=== PATIENT | male | born 1940 | race Caucasian/White ===

== ENCOUNTER 2020-01-18 09:35 | Emergency (ER) | payer MEDICARE ==
[~2020-01-18] VITALS: Ht 170.2 cm; Wt 68.2 kg
[2020-01-18] MEDS ORDERED: HYDR-4383 PO (11:12)
[2020-01-18] MEDS ORDERED: cyclobenzaprine 10mg tablet PO ONE (11:35)
[2020-01-18 11:59] VITALS: BP 159/76
== END 2020-01-18 11:52 | disposition home or self-care (01) ==
LOC: ER 09:36
DX: S22.088A Other fracture of T11-T12 vertebra, initial encounter for closed fracture (principal); S39.012A Strain of muscle, fascia and tendon of lower back, initial encounter; E11.9 Type 2 diabetes mellitus without complications; Z98.890 Other specified postprocedural states; W19.XXXA Unspecified fall, initial encounter; Y93.89 Activity, other specified; Y92.89 Other specified places as the place of occurrence of the external cause; Y99.8 Other external cause status
CPT/HCPCS: 72131; 99284

== ENCOUNTER 2024-03-03 13:31 | Inpatient (IN) | payer MEDICARE, MEDICAID ==
[~2024-03-03] VITALS: Ht 172.7 cm; Wt 75.0 kg
[~2024-03-03 13:31] MED LIST: HYDR-4383 PO
[2024-03-03 14:05] LABS: BASOPHILS # (AUTO) 0.1 X10'3 (0-0.2); BASOPHILS % (AUTO) 0.7 % (0-1); EOSINOPHILS # (AUTO) 0.3 X10'3 (0-0.9); EOSINOPHILS % (AUTO) 2.5 % (0-6); HEMATOCRIT 38.8 % (35.0-45.0); LYMPHOCYTES # (AUTO) 2.9 X10'3 (1.1-4.8); LYMPHOCYTES % (AUTO) 26.8 % (21-51); MEAN CORPUSCULAR HEMOGLOBIN 29.4 PG (27.0-31.0); MEAN CORPUSCULAR HGB CONC 33.6 g/dL (33.0-36.5); MEAN CORPUSCULAR VOLUME 87.4 FL (78-98); MONOCYTES # (AUTO) 0.9 X10'3 (0-0.9); MONOCYTES % (AUTO) 8.5 % (2-12); NEUTROPHILS # (AUTO) 6.7 X10'3 (1.8-7.7); NEUTROPHILS % (AUTO) 61.5 % (42-75); PLATELET COUNT 279 X10'3 (140-440); RED BLOOD COUNT 4.45 X10'6 (4.20-5.60); RED CELL DISTRIBUTION WIDTH 12.9 % (11.5-14.5); WHITE BLOOD COUNT 10.8 X10'3 (4.5-11.0)
[2024-03-03 14:24] LABS: ALBUMIN 3.2 G/DL (3.4-5.0); ANION GAP 10 (8-16); BLOOD UREA NITROGEN 18 MG/DL (7-18); CALCIUM 9.5 MG/DL (8.5-10.1); CHLORIDE 96 MMOL/L (99-107); CREATININE 1.29 MG/DL (0.40-0.90); GLUCOSE 317 MG/DL (70-104); POTASSIUM 3.9 MMOL/L (3.5-5.1); SODIUM 132 MMOL/L (135-145); TOTAL CARBON DIOXIDE 26.3 MMOL/L (24-32); eCRCL 34 ML/MIN; eGFR 40 ML/MIN
[2024-03-03 14:27] LABS: APTT 25 SECONDS (22-32); INR 0.9 INR; PROTHROMBIN TIME 9.9 SECONDS (9.0-12.0)
[2024-03-03 15:51] LABS: BILIRUBIN,URINE NEGATIVE (Neg); CLARITY,URINE CLEAR (Clear); COLOR,URINE YELLOW (Yellow); GLUCOSE, URINE 500 mg/dl (Neg); KETONES,URINE NEGATIVE (Neg); LEUKOCYTE ESTERASE ,URINE NEGATIVE (Neg); NITRITES, URINE NEGATIVE (Neg); OCCULT BLOOD,URINE TRACE-INTACT (Neg); PH,URINE 6.5 (4.8-8.0); PROTEIN,URINE 100 mg/dl (Neg); UROBILINOGEN,URINE 0.2 E.U/dL (0.2-1.0)
[2024-03-03 15:56] LABS: UA COLLECTION TYPE CLN CATCH MIDSTREAM
[2024-03-03 15:57] LABS: BACTERIA,URINE 1+ /HPF (Neg); HYALINE CASTS 0-3 /LPF (NEGATIVE); MUCUS STRANDS NONE SEEN /LPF (Neg); RBC,URINE 0-2 /HPF (0-2); SQUAMOUS EPITHELIAL CELL,UR MODERATE /LPF (FEW); WBC,URINE 0-4 /HPF (0-4)
[2024-03-03] MEDS: aspirin 81mg tab.chew PO ONE (16:56)
[2024-03-03] MEDS ORDERED: potassium Cl 40MEQ/1/2NS 520ml 520 ML IV PRN (18:10)
[2024-03-03] MEDS ORDERED: magnesium hydroxide 30ml (MOM) UD suspension PO PRN (18:10)
[2024-03-03] MEDS ORDERED: potassium Cl 20 mEq SR tablet PO PRN ×2 (18:10)
[2024-03-03] MEDS ORDERED: magnesium Cl slow-release 64mg tablet PO PRN (18:10)
[2024-03-03] MEDS ORDERED: magnesium sulf-water 4G/100mL 100 ML IV PRN (18:10)
[2024-03-03] MEDS ORDERED: acetaminophen 325mg tablet PO PRN (18:10)
[2024-03-03] MEDS ORDERED: ondansetron/PF 4mg/2ml inj IV PRN (18:10)
[2024-03-03] MEDS ORDERED: mag hydrox/Alum hydrox/simeth 30ml oral suspension PO PRN (18:10)
[2024-03-03] MEDS ORDERED: magnesium sulf-water 2g/50mL 50 ML IV PRN (18:10)
[2024-03-03] MEDS: PERFLUTREN PROTEIN-A MICROSPHR (Optison) 0.22 MG/ML 3ML VIAL IV ONE (18:56)
[2024-03-03 19:15] LABS: HEMOGLOBIN A1C 8.8 % (4.5-6.2)
[2024-03-03] MEDS: K and/or MAG REPLACEMENT MC SCH (20:00)
[2024-03-03] MEDS: docusate sod 100mg capsule PO SCH (20:00)
[2024-03-03 21:00] VITALS: BP 210/117; PULSE 63; RESP 18; TEMP 98.2; O2SAT 96
[2024-03-03 21:30] VITALS: BP 205/93; PULSE 84
[2024-03-03] MEDS ORDERED: dextrose 50%-water 50ml dispensing syringe IV PRN ×2 (21:50)
[2024-03-03] MEDS ORDERED: DEXTROSE 15 GM of carb/4 tabs (each vial/BOTTLE has 4 tablets) PO PRN ×2 (21:50)
[2024-03-03] MEDS ORDERED: glucagon, human recombinant 1mg kit SUBCUT PRN (21:50)
[2024-03-03 22:00] VITALS: BP 205/93; PULSE 83; RESP 13; TEMP 97.9; O2SAT 95
[2024-03-03] MEDS: heparin, porcine 5000 units/ml vial SQ SCH (22:47)
[2024-03-03] MEDS: insulin glargine (Lantus) pen - multi-dose SQ SCH (22:48)
[2024-03-03] MEDS: INSULIN LISPRO 100 UNIT/ML INSULN.PEN MULTI-DOSE SQ SCH (22:49)
[2024-03-04] VITALS (11 sets, daily range): BP systolic 115–170; BP diastolic 60–87; PULSE 68–83; RESP 11–17; TEMP 97.7–99; O2SAT 91–99
[2024-03-04] MEDS: normal saline 1000ml 1,000 ML IVB ONE (02:26)
[2024-03-04 06:12] LABS: BASOPHILS # (AUTO) 0.1 X10'3 (0-0.2); BASOPHILS % (AUTO) 0.9 % (0-1); EOSINOPHILS # (AUTO) 0.2 X10'3 (0-0.9); EOSINOPHILS % (AUTO) 2.6 % (0-6); HEMATOCRIT 35.9 % (35.0-45.0); HEMOGLOBIN 12.1 g/dl (12.0-16.0); LYMPHOCYTES # (AUTO) 2.4 X10'3 (1.1-4.8); LYMPHOCYTES % (AUTO) 25.9 % (21-51); MEAN CORPUSCULAR HEMOGLOBIN 29.4 PG (27.0-31.0); MEAN CORPUSCULAR HGB CONC 33.7 g/dL (33.0-36.5); MEAN CORPUSCULAR VOLUME 87.1 FL (78-98); MEAN PLATELET VOLUME 9.2 FL (7.4-10.4); MONOCYTES # (AUTO) 0.9 X10'3 (0-0.9); MONOCYTES % (AUTO) 9.3 % (2-12); NEUTROPHILS # (AUTO) 5.7 X10'3 (1.8-7.7); NEUTROPHILS % (AUTO) 61.3 % (42-75); PLATELET COUNT 267 X10'3 (140-440); RED BLOOD COUNT 4.12 X10'6 (4.20-5.60); RED CELL DISTRIBUTION WIDTH 12.8 % (11.5-14.5); WHITE BLOOD COUNT 9.3 X10'3 (4.5-11.0)
[2024-03-04 06:28] LABS: ALANINE AMINOTRANSFERASE 16 U/L (12-78); ALBUMIN 2.6 G/DL (3.4-5.0); ALBUMIN/GLOBULIN RATIO 0.6 (1.1-1.5); ALKALINE PHOSPHATASE 80 IU/L (46-116); ANION GAP 9 (8-16); ASPARTATE AMINO TRANSFERASE 17 U/L (10-37); BILIRUBIN,TOTAL 0.5 MG/DL (0.1-1.0); BLOOD UREA NITROGEN 13 MG/DL (7-18); BUN/CREATININE RATIO 12.9 (10.0-20.0); CALCIUM 8.4 MG/DL (8.5-10.1); CHLORIDE 105 MMOL/L (99-107); CHOL/HDL RATIO 8.2 (0.00-4.99); CHOLESTEROL 286 MG/DL (0-200); CREATININE 1.01 MG/DL (0.40-0.90); GLUCOSE 181 MG/DL (70-104); HDL CHOLESTEROL 35 MG/DL (35-60); POTASSIUM 3.9 MMOL/L (3.5-5.1); SODIUM 139 MMOL/L (135-145); TOTAL CARBON DIOXIDE 24.8 MMOL/L (24-32); TOTAL PROTEIN 7.2 G/DL (6.4-8.2); TRIGLYCERIDES 184 MG/DL (20-135); eCRCL 43 ML/MIN; eGFR 52 ML/MIN
[2024-03-04 06:34] LABS: HEMOGLOBIN A1C 8.6 % (4.5-6.2)
[2024-03-04 06:38] LABS: LDL CHOLESTEROL 204 MG/DL (50-100)
[2024-03-04] MEDS: atorvastatin 20mg tablet PO SCH (07:55)
[2024-03-04] MEDS: aspirin 325mg tablet, delayed-release (Ecotrin) PO SCH (07:55)
[2024-03-04] MEDS ORDERED: atorvastatin 20mg tablet PO SCH (08:00)
[2024-03-04] MEDS: clopidogrel 75mg tablet PO ONE (12:49)
[2024-03-04] MEDS: atorvastatin 20mg tablet PO ONE (12:49)
[2024-03-04] MEDS ORDERED: iohexol 350MG/ML 100ml bottle IV ONE (15:25)
[2024-03-04] MEDS: normal saline 1000ml 1,000 ML IV SCH (15:25)
[2024-03-05 02:00] VITALS: BP 137/65; PULSE 64; RESP 16; TEMP 97.8; O2SAT 91
[2024-03-05] MEDS: normal saline 250ml IV soln 250 ML IV ONE (03:15)
[2024-03-05 04:00] VITALS: BP 145/67; PULSE 66; RESP 16; TEMP 97.8; O2SAT 93
[2024-03-05 06:00] VITALS: BP 154/75; PULSE 65; RESP 20; TEMP 98; O2SAT 97
[2024-03-05 06:32] LABS: BASOPHILS # (AUTO) 0.1 X10'3 (0-0.2); EOSINOPHILS # (AUTO) 0.3 X10'3 (0-0.9); EOSINOPHILS % (AUTO) 3.7 % (0-6); HEMATOCRIT 34.5 % (35.0-45.0); HEMOGLOBIN 11.7 g/dl (12.0-16.0); LYMPHOCYTES # (AUTO) 2.2 X10'3 (1.1-4.8); LYMPHOCYTES % (AUTO) 23.7 % (21-51); MEAN CORPUSCULAR HEMOGLOBIN 29.3 PG (27.0-31.0); MEAN CORPUSCULAR HGB CONC 33.9 g/dL (33.0-36.5); MEAN CORPUSCULAR VOLUME 86.4 FL (78-98); MEAN PLATELET VOLUME 9.4 FL (7.4-10.4); MONOCYTES # (AUTO) 0.8 X10'3 (0-0.9); NEUTROPHILS # (AUTO) 5.8 X10'3 (1.8-7.7); NEUTROPHILS % (AUTO) 62.6 % (42-75); PLATELET COUNT 258 X10'3 (140-440); RED CELL DISTRIBUTION WIDTH 12.9 % (11.5-14.5); WHITE BLOOD COUNT 9.2 X10'3 (4.5-11.0)
[2024-03-05 06:50] LABS: ALANINE AMINOTRANSFERASE 19 U/L (12-78); ALBUMIN 2.7 G/DL (3.4-5.0); ALBUMIN/GLOBULIN RATIO 0.6 (1.1-1.5); ALKALINE PHOSPHATASE 76 IU/L (46-116); ANION GAP 9 (8-16); ASPARTATE AMINO TRANSFERASE 13 U/L (10-37); BILIRUBIN,TOTAL 0.5 MG/DL (0.1-1.0); BLOOD UREA NITROGEN 14 MG/DL (7-18); BUN/CREATININE RATIO 13.1 (10.0-20.0); CALCIUM 9.1 MG/DL (8.5-10.1); CHLORIDE 104 MMOL/L (99-107); CREATININE 1.07 MG/DL (0.40-0.90); GLUCOSE 189 MG/DL (70-104); MAGNESIUM 1.9 MG/DL (1.5-2.4); POTASSIUM 3.6 MMOL/L (3.5-5.1); SODIUM 137 MMOL/L (135-145); TOTAL CARBON DIOXIDE 24.1 MMOL/L (24-32); TOTAL PROTEIN 6.9 G/DL (6.4-8.2); eCRCL 41 ML/MIN; eGFR 49 ML/MIN
[2024-03-05 08:00] VITALS: BP 154/75; PULSE 65; RESP 20; TEMP 98; O2SAT 97
[2024-03-05] MEDS: cholecalciferol (vitamin D3) 1,000 unit (25mcg) tablet PO SCH (08:09)
[2024-03-05] MEDS: clopidogrel 75mg tablet PO SCH (08:09)
[2024-03-05] MEDS: OMEGA-3/DHA/EPA/FISH OIL 1 EACH CAPSULE.DR PO SCH (08:09)
[2024-03-05] MEDS: multivitamins, therapeutics tablet PO SCH (08:10)
[2024-03-05] MEDS: magnesium citrate 296ml oral solution PO ONE (08:10)
[2024-03-05] MEDS ORDERED: ASPI-1071 PO (10:28)
[2024-03-05] MEDS ORDERED: CLOP75TA34 PO (10:28)
[2024-03-05] MEDS ORDERED: ATOR20TA66 PO (10:28)
[2024-03-05] MEDS ORDERED: DOCU100C40 PO (10:28)
[2024-03-05] MEDS ORDERED: OMEG1CAP46 PO (10:28)
[2024-03-05] MEDS ORDERED: METF-1203 PO (12:46)
[2024-03-05] MEDS ORDERED: atorvastatin 20mg tablet PO SCH (21:00)
== END 2024-03-05 11:00 | disposition home health service (06) | DRG 65 ==
LOC: ER 13:32 → EDSEX 13:32 → ED HOLD 18:13 → ORTHO 4S 20:53
PROVIDERS: ADMIT Internal Medicine; ATTEND Nurse Practitioner Family
PROC: B3251ZZ Computerized Tomography (CT Scan) of Bilateral Common Carotid Arteries using Low Osmolar Contrast (ICD-10-PCS; principal; 2024-03-04)
PROC: B32G1ZZ Computerized Tomography (CT Scan) of Bilateral Vertebral Arteries using Low Osmolar Contrast (ICD-10-PCS; 2024-03-04)
PROC: B32R1ZZ Computerized Tomography (CT Scan) of Intracranial Arteries using Low Osmolar Contrast (ICD-10-PCS; 2024-03-04)
PROC: B3281ZZ Computerized Tomography (CT Scan) of Bilateral Internal Carotid Arteries using Low Osmolar Contrast (ICD-10-PCS; 2024-03-04)
DX: I63.9 Cerebral infarction, unspecified (principal); N17.9 Acute kidney failure, unspecified; E86.0 Dehydration; I25.10 Atherosclerotic heart disease of native coronary artery without angina pectoris; I10 Essential (primary) hypertension; E11.9 Type 2 diabetes mellitus without complications; Z85.3 Personal history of malignant neoplasm of breast; Z79.899 Other long term (current) drug therapy
CPT/HCPCS: 36415; 70450; 70498; 70551; 71045; 80048; 80053; 80061; 81001; 82948; 83036; 83735; 85025; 85610; 85730; 87081; 93005; 93306; 93880; 97110; 97161; 97530; 99285; G0378; J1644; J1815; J7030; J7040; J7050; Q9967

== ENCOUNTER 2024-05-02 12:31 | Outpatient (CLI) | payer MEDICARE, MEDICAID ==
[~2024-05-02 12:31] MED LIST changes: +ASPI-1071 PO; +ATOR20TA66 PO; +CLOP75TA34 PO; +DOCU100C40 PO; -HYDR-4383 PO; +OMEG1CAP46 PO
[2024-05-02] MEDS ORDERED: GADOTERATE MEGLUMINE 7.5 MMOL/15 ML VIAL IV ONE (22:12)
== END 2024-05-02 23:59 | disposition home or self-care (01) ==
LOC: MRI 12:31
PROVIDERS: ATTEND Nurse Practitioner Family
DX: I67.82 Cerebral ischemia (principal); I63.9 Cerebral infarction, unspecified; C50.912 Malignant neoplasm of unspecified site of left female breast; G93.9 Disorder of brain, unspecified; G25.9 Extrapyramidal and movement disorder, unspecified; R90.82 White matter disease, unspecified
CPT/HCPCS: 70553; A9575